=== PATIENT | male | born 1960 | race Caucasian/White ===

== ENCOUNTER 2023-09-26 07:35 | Observation (INO) ==
[2023-09-20 18:11] LABS: Basophils # (Auto) 0.03 K/mcL (0.00-0.30); Basophils % (Auto) 0.5 % (0.0-2.0); Eosinophils # (Auto) 0.17 K/mcL (0.00-0.70); Eosinophils % (Auto) 2.6 % (0.0-7.0); Hematocrit 42.4 % (40.1-51.0); Hemoglobin 14.1 g/dL (13.7-17.5); Lymphocytes # (Auto) 1.65 K/mcL (1.50-4.80); Lymphocytes % (Auto) 25.5 % (15.5-49.0); Mean Corpuscular HGB Conc 33.3 g/dL (31.0-36.0); Mean Platelet Volume 10.2 fL (8.8-12.5); Monocytes % (Auto) 6.2 % (1.0-12.0); Neutrophils % (Auto) 64.9 % (38.0-78.0); Platelet Count 192 K/mcL (140-440); RBC 4.71 M/mcL (4.63-6.08); Red Cell Distribution Width 13.1 % (11.5-14.5); WBC 6.5 K/mcL (4.5-11.0)
[2023-09-20 18:30] LABS: Blood Urea Nitrogen 13 mg/dL (8-23); Calcium 9.2 mg/dL (8.6-10.4); Carbon Dioxide 26 mmol/L (22-30); Chloride 102 mmol/L (96-108); Glomerular Filtration Rate 70; Glucose 86 mg/dL (70-105)
[~2023-09-26 07:35] MED LIST: BUPIVACAINE W/EPI 0.5% 50 ML VIAL IJ ONE; GENTAMICIN SULFATE 800 MG/20 ML VIAL IR ONE; ceFAZolin 2 GM in DEXTROSE 5% IN WATER 50 ML IV SCH
[2023-09-26] MEDS ORDERED: PROPOFOL 200 MG/20 ML VIAL IV ONE (10:03)
[2023-09-26] MEDS ORDERED: ROCURONIUM 10 MG/ML ML IV ONE ×2 (10:03→12:17)
[2023-09-26] MEDS ORDERED: fentaNYL 100 MCG/2 ML VIAL IV ONE (10:03)
[2023-09-26] MEDS ORDERED: ONDANSETRON 4 MG/2 ML VIAL ONE (10:03)
[2023-09-26] MEDS ORDERED: HYDROmorphone 0.5 MG/0.5 ML SYRINGE IV PRN ×3 (10:48→13:39)
[2023-09-26] MEDS ORDERED: IPRATROPIUM/ALBUTEROL 3 ML AMPUL.NEB NEB PRN ×2 (10:48→13:39)
[2023-09-26] MEDS ORDERED: FLUMAZENIL 0.1 MG/ML ML IV PRN (10:48)
[2023-09-26] MEDS ORDERED: ONDANSETRON 4 MG/2 ML VIAL IV PRN ×2 (10:48→13:39)
[2023-09-26] MEDS ORDERED: fentaNYL 100 MCG/2 ML VIAL IV PRN ×2 (10:48→13:39)
[2023-09-26] MEDS ORDERED: NALOXONE HCL 0.4 MG/ML VIAL IV PRN (10:48)
[2023-09-26] MEDS ORDERED: LACTATED RINGERS 1,000 ML IV SCH ×2 (11:00→13:45)
[2023-09-26] MEDS ORDERED: TRANEXAMIC ACID 1,000 MG/10 ML VIAL ONE (12:17)
[2023-09-26] MEDS: VANCOMYCIN 1 GM VIAL TOPICAL SCH (12:52)
[2023-09-26] MEDS ORDERED: SUGAMMADEX SODIUM 200 MG/2 ML VIAL IV ONE (13:15)
[2023-09-26] MEDS ORDERED: MEPERIDINE 50 MG/ML VIAL IM PRN (13:39)
[2023-09-26] MEDS ORDERED: MEPERIDINE 25 MG/ML VIAL IV PRN (13:45)
[2023-09-26] MEDS: oxyCODONE IR 5 MG TABLET PO PRN ×2 (14:23→19:07)
[2023-09-26] MEDS: DEXTROSE 5%-LR 1,000 ML IV SCH (19:08)
[2023-09-26] MEDS ORDERED: ALBUTEROL SULFATE 60 PUFF INHALER INH PRN (23:21)
[2023-09-27] MEDS: oxyCODONE IR 5 MG TABLET PO PRN ×3 (05:27→22:21)
[2023-09-27 06:35] LABS: Hematocrit 37.9 % (40.1-51.0); Hemoglobin 13.2 g/dL (13.7-17.5); Mean Corpuscular HGB Conc 34.8 g/dL (31.0-36.0); Mean Platelet Volume 10.1 fL (8.8-12.5); Platelet Count 135 K/mcL (140-440); RBC 4.26 M/mcL (4.63-6.08); WBC 7.7 K/mcL (4.5-11.0)
[2023-09-27 06:45] LABS: Anion Gap 8.5 (8.0-16.0); Blood Urea Nitrogen 14 mg/dL (8-23); Calcium 8.4 mg/dL (8.6-10.4); Carbon Dioxide 27 mmol/L (22-30); Chloride 104 mmol/L (96-108); Glomerular Filtration Rate 80; Glucose 147 mg/dL (70-105)
[2023-09-27] MEDS: ATORVASTATIN 40 MG TABLET PO SCH (08:49)
[2023-09-27] MEDS: FLUTICASONE HFA 220MCG INHALER INH SCH ×2 (08:50→22:42)
[2023-09-27] MEDS: DEXTROSE 5%-LR 1,000 ML IV SCH (08:51)
[2023-09-27] MEDS: VANCOMYCIN 1 GM VIAL TOPICAL SCH (08:51)
[2023-09-27] MEDS ORDERED: LACTULOSE 20 GM/30 ML ORAL.SOL PO ONE (12:28)
[2023-09-27] MEDS ORDERED: BISACODYL 10 MG SUPP.RECT PR ONE (12:29)
[2023-09-27] MEDS ORDERED: AMOXICILLIN/POTASSIUM CLAV 875 MG TABLET PO SCH (15:30)
[2023-09-27] MEDS: ACETAMINOPHEN 325 MG TABLET PO PRN ×2 (15:39→22:21)
[2023-09-27] MEDS ORDERED: PIPERACILLIN SODIUM/TAZOBACTAM 3.375 GM in DEXTROSE 5% IN WATER 50 ML IV ONE (18:00)
[2023-09-27] MEDS: DEXTROSE 5%-1/2NS W/10MEQ KCL 1,000 ML IV SCH (18:11)
[2023-09-27] MEDS ORDERED: ONDANSETRON 4 MG/2 ML VIAL IV PRN (22:49)
[2023-09-27] MEDS ORDERED: ONDANSETRON 4 MG/2 ML VIAL ONE (22:51)
[2023-09-28] MEDS: PIPERACILLIN SODIUM/TAZOBACTAM 3.375 GM in DEXTROSE 5% IN WATER 100 ML IV SCH ×4 (00:35→22:36)
[2023-09-28] MEDS: DEXTROSE 5%-1/2NS W/10MEQ KCL 1,000 ML IV SCH ×2 (05:15→14:32)
[2023-09-28] MEDS: oxyCODONE IR 5 MG TABLET PO PRN ×2 (05:22→21:38)
[2023-09-28] MEDS: ACETAMINOPHEN 325 MG TABLET PO PRN ×2 (05:23→18:43)
[2023-09-28] MEDS: ATORVASTATIN 40 MG TABLET PO SCH (08:46)
[2023-09-28] MEDS ORDERED: AMOXICILLIN/POTASSIUM CLAV 875 MG TABLET PO SCH (09:00)
[2023-09-28] MEDS: VANCOMYCIN 1 GM VIAL TOPICAL SCH (11:56)
[2023-09-28] MEDS: FLUTICASONE HFA 220MCG INHALER INH SCH ×2 (11:58→20:23)
[2023-09-29] MEDS: DEXTROSE 5%-1/2NS W/10MEQ KCL 1,000 ML IV SCH (01:33)
[2023-09-29] MEDS: oxyCODONE IR 5 MG TABLET PO PRN (03:29)
[2023-09-29] MEDS: PIPERACILLIN SODIUM/TAZOBACTAM 3.375 GM in DEXTROSE 5% IN WATER 100 ML IV SCH (05:27)
[2023-09-29 06:15] LABS: Hematocrit 35.4 % (40.1-51.0); Hemoglobin 12.4 g/dL (13.7-17.5); Mean Cell Volume 88.5 fL (80.0-100.0); Mean Platelet Volume 9.8 fL (8.8-12.5); Platelet Count 151 K/mcL (140-440); Red Cell Distribution Width 12.6 % (11.5-14.5); WBC 7.3 K/mcL (4.5-11.0)
[2023-09-29 06:39] LABS: Anion Gap 8.8 (8.0-16.0); Blood Urea Nitrogen 9 mg/dL (8-23); Calcium 8.5 mg/dL (8.6-10.4); Carbon Dioxide 27 mmol/L (22-30); Chloride 102 mmol/L (96-108); Glomerular Filtration Rate 87; Glucose 113 mg/dL (70-105)
[2023-09-29] MEDS: FLUTICASONE HFA 220MCG INHALER INH SCH (07:58)
[2023-09-29] MEDS: ATORVASTATIN 40 MG TABLET PO SCH (07:58)
[2023-09-29] MEDS: ACETAMINOPHEN 325 MG TABLET PO PRN (10:14)
== END 2023-09-29 15:05 | disposition home or self-care (01) ==
LOC: SUR 07:35 → MEDSUR 07:35
PROVIDERS: ADMIT Surgery Surgical Critical Care; ATTEND Surgery Surgical Critical Care